=== PATIENT | female | born 1985 | race Caucasian/White ===

== ENCOUNTER 2016-06-26 09:06 | Emergency (ER) | payer MEDICAID ==
[~2016-06-26] VITALS: Ht 167.6 cm; Wt 72.0 kg
[~2016-06-26 09:06] MED LIST: DICY20TA10 PO; INDO50CA PO; NAPR-576 PO; ONDA1TAB16 PO; PROT40TA PO; ULTR50TA PO; ZOLP5TAB3 PO
[2016-06-26 09:08] VITALS: BP 126/83; PULSE 97; RESP 17; TEMP 98.2; O2SAT 99
[2016-06-26] MEDS ORDERED: TRAM50TA PO (09:22)
[2016-06-26] MEDS ORDERED: OMEP40CA2 PO (09:22)
[2016-06-26] MEDS ORDERED: INDO50CA PO (09:37)
[2016-06-26] MEDS ORDERED: CETI10 PO (09:37)
[2016-06-26] MEDS ORDERED: MONT10TA2 PO (09:37)
[2016-06-26] MEDS ORDERED: BENZ100 PO (09:46)
--- NOTE | 2016-06-26 09:48 | PD ---
HPI Chief Complaint: Cold / Flu Symptoms Time Seen by Provider: 09:15 Travel History International Travel<30 days: No Contact w/Intl Traveler<30days: No Traveled to known affect area: No History of Present Illness HPI The patient was seen and examined in the presence of the nurse. She complains of cough and congestion and runny nose. Symptoms severity is mild to moderate. No alleviating factors. No documented fevers. She is a cigarette smoker and has albuterol inhaler at home PFSH Past Medical History Cancer: Yes (SQUAMOUS CELL CERVICAL) Cardiovascular Problems: No Diminished Hearing: No Endocrine: No Gastrointestinal Disorders: Yes (GERD, IRRITABLE BOWEL, CONSTIPATION) Genitourinary: No Hepatitis: No Hiatal Hernia: Yes Immune Disorder: No Kidney Stones: Yes Medical other: Yes (PAST HX ANEMIA) Musculoskeletal: Yes (LUMBAR PAIN, ARTHRITIS) Neurologic: Yes (NUMBNESS TINGLING ARMS, HANDS) Psychiatric: No Reproductive: Yes (ENDOMETRIOSIS, ovarian cysts) Respiratory: No Tetanus Vaccination: > 5 Years Influenza Vaccination: No ?: Not LMP: 06/26/16 : 3 Para: 3 Miscarriage: 0 : 0 Past Surgical History Abdominal Surgery: No AICD: No Body Medical Devices: NONE Cardiac Surgery: No Ear Surgery: No Endocrine Surgery: No Eye Surgery: No Genitourinary Surgery: No Gynecologic Surgery: Yes (CONE BIOPSY AND FREEZING) Joint Replacement: No Oral Surgery: No Pacemaker: No Thoracic Surgery: No Social History Alcohol Use: Yes (daily ) Tobacco Use: Yes (2ppd) Substance Use: No Allergies-Medications (Allergen,Severity, Reaction): Coded Allergies: Latex (Verified Allergy, Severe, Rash, 06/26/16) Reported Meds & Prescriptions Reported Meds & Active Scripts Active Tessalon Perles (Benzonatate) 100 Mg Cap 200 Mg PO TID PRN Reported Indomethacin 50 Mg Cap 50 Mg PO BID Take with food, milk, or antacids to decrease stomach adverse effects. Cetirizine (Cetirizine HCl) 10 Mg Tab 10 Mg PO DAILY Singulair (Montelukast Sodium) 10 Mg Tab 10 Mg PO HS Omeprazole 40 Mg Cap 40 Mg PO DAILY Tramadol (Tramadol HCl) 50 Mg Tab 50 Mg PO Q4H PRN Review of Systems General / Constitutional: No: Fever HENT: No: Headaches Cardiovascular: No: Chest Pain or Discomfort Respiratory: Positive: Cough Physical Exam Narrative RESPIRATORY: Respiratory effort unlabored, no retractions or use of accessory muscles. Breath sounds are clear and symmetric. SKIN: Inspection shows no rash or ulcers. Palpation shows no induration or nodules. NECK: Symmetrical appearance, midline trachea. No mass or crepitus. Thyroid without enlargement, tenderness, or mass. GASTROINTESTINAL: Abdomen soft, non-tender, nondistended. Positive bowel sounds. No hepato-splenomegaly, or palpable masses. No guarding. Data Data Last Documented VS Vital Signs Date Time Temp Pulse Resp B/P Pulse Ox O2 Delivery O2 Flow Rate FiO2 06/26/16 09:08 98.2 97 17 126/83 99 MDM Medical Decision Making Medical Screen Exam Complete: Yes Emergency Medical Condition: Yes Medical Record Reviewed: Yes Differential Diagnosis Bronchitis, URI, asthma Narrative Course I have reviewed the patient's electronic medical record. Patient has normal vital signs and presentation consistent with a viral bronchitis Prescribed her some Tessalon to try Recommended she quit smoking and use her inhaler as needed No indication for antibiotics, most likely viral in etiology Diagnosis Primary Impression: Acute viral bronchitis Additional Instructions: The patient was advised to follow up with their physician and return if they worsen. Med/Other Pt SpecificInfo: Prescription(s) given Scripts Benzonatate (Tessalon Perles)100 Mg Oxe860 Mg PO TID PRN (COUGH) #20 CAP Ref 0 Prov:Kaiden Jackson MD 06/26/16 Disposition: 01 DISCHARGE HOME Condition: Stable Kaiden Jackson MD Jun 26, 2016 09:48
== END 2016-06-26 10:37 | disposition home or self-care (01) ==
LOC: NEPE 09:06
DX: J20.8 Acute bronchitis due to other specified organisms (principal); F17.210 Nicotine dependence, cigarettes, uncomplicated
CPT/HCPCS: 99283